=== PATIENT | female | born 1980 | race Caucasian/White ===

== ENCOUNTER 2016-09-09 17:32 | Emergency (ER) | payer BC, OTHER ==
[~2016-09-09] VITALS: Ht 175.3 cm; Wt 72.0 kg
[2016-09-09 17:34] VITALS: BP 120/80
[2016-09-09 18:32] LABS: HEP B SURF. AB 918.1 mIU/mL (0.0-10.0)
[2016-09-09 18:37] LABS: HIV 1&2 ANTIBODY SCREEN Nonreactive (Nonreactive); HIV-1 p24 ANTIGEN Nonreactive (Nonreactive)
[2016-09-09 19:10] LABS: HEPATITIS C VIRUS ANTIBODY Nonreactive (Nonreactive)
== END 2016-09-09 18:11 | disposition home or self-care (01) ==
LOC: ED 17:43
DX: Z77.21 Contact with and (suspected) exposure to potentially hazardous body fluids (principal)
CPT/HCPCS: 36415; 86703; 86705; 86706; 86803; 87340; 87899; 99284; G0435